=== PATIENT | female | born 1975 | race Two or more races ===

== ENCOUNTER 2018-06-03 22:13 | Emergency (ER) | payer MEDICAID ==
[~2018-06-03] VITALS: Ht 160 cm; Wt 56.7 kg
[2018-06-03 23:07] VITALS: BP 109/73
[2018-06-04] MEDS ORDERED: methylPREDNISolone SOD SUCC 125 MG/2 ML VL IM ONE (02:00)
[2018-06-04] MEDS ORDERED: ACETAMINOPHEN/CODEINE#3 (300/30mg) TAB PO ONE (02:00)
== END 2018-06-04 02:40 | disposition home or self-care (01) ==
LOC: ER 22:13
DX: S86.912A Strain of unspecified muscle(s) and tendon(s) at lower leg level, left leg, initial encounter (principal); Z98.51 Tubal ligation status; X50.9XXA Other and unspecified overexertion or strenuous movements or postures, initial encounter; Y93.89 Activity, other specified; Y99.8 Other external cause status; Y92.89 Other specified places as the place of occurrence of the external cause
CPT/HCPCS: 29505; 73562; 96372; 99283; J2930

== ENCOUNTER 2023-10-01 09:21 | Emergency (ER) | payer MEDICAID ==
[~2023-10-01] VITALS: Ht 160 cm; Wt 72.2 kg
[2023-10-01] MEDS: ONDANSETRON HCL 4 MG/2 ML VIAL IV ONE (09:44)
[2023-10-01] MEDS: SODIUM CHLORIDE 0.9% 1,000 ML IV ONE (09:44)
[2023-10-01 09:55] LABS: Basophils # (auto) 0 10 ^3/uL (0-0.2); Basophils % (auto) 0.3 % (0.0-2.0); Eosinophils # (auto) 0 10 ^3/uL (0-0.8); Eosinophils % (auto) 0.1 % (0.0-7.0); Hematocrit 38.6 % (36.0-46.0); Hemoglobin 12.8 g/dL (12.2-16.2); Lymphocytes # (auto) 1.5 10 ^3/uL (0.4-5.4); Mean Corpuscular Hemoglobin 28.2 pg (28.0-32.0); Mean Corpuscular Hgb Conc. 33.1 g/dL (32.0-36.0); Mean Corpuscular Volume 85.2 fL (80.0-100.0); Monocytes # (auto) 0.3 10 ^3/uL (0-1.3); Monocytes % (auto) 2.1 % (0.0-12.0); Neutrophils # (auto) 11.8 10 ^3/uL (1.6-8.6); Neutrophils % (auto) 86.5 % (37.0-80.0); Red Blood Cells 4.53 10^6/uL (4.0-5.20); Red Cell Distribution Width 14.6 % (11.8-14.3); White Blood Cell 13.6 10^3/uL (4.4-10.8)
[2023-10-01] MEDS ORDERED: ZOFR4T PO (10:30)
[2023-10-01 10:33] LABS: Chloride 103 mmol/L (98-107); Potassium 3.9 mmol/L (3.5-5.1); Sodium 134 mmol/L (136-145)
[2023-10-01 10:34] LABS: Anion Gap 6 (5-15); Calcium 9.5 mg/dL (8.7-10.4); Carbon Dioxide 25 mmol/L (20-30)
[2023-10-01 10:39] LABS: BUN/Creatinine Ratio 15.6 (10.0-20.0); Blood Urea Nitrogen 10 mg/dL (9-23); Glucose 128 mg/dL (74-106)
[2023-10-01] MEDS: HYDROcodone-ACET 5/325MG TAB ONE (10:40)
[2023-10-01] MEDS: HYDROcodone-ACET 5/325MG TAB PO ONE (10:48)
[2023-10-01 11:01] LABS: Urine Bacteria None Seen /hpf (None Seen)
[2023-10-01 11:18] LABS: Urine Blood 1+ /uL (Negative); Urine Clarity Clear (Clear); Urine Color Light-Yellow (Yellow); Urine Protein, UAD Negative (Negative); Urine Specific Gravity 1.019 (1.001-1.035); Urine Urobilinogen Normal (Negative); Urine WBC 1 /hpf (0 - 5)
[2023-10-01 11:49] VITALS: BP 128/74; PULSE 74; RESP 18; TEMP 98.2; O2SAT 96
== END 2023-10-01 11:56 | disposition home or self-care (01) ==
LOC: ER 09:21
DX: A05.9 Bacterial foodborne intoxication, unspecified (principal); D72.829 Elevated white blood cell count, unspecified; Z98.51 Tubal ligation status
CPT/HCPCS: 36415; 80048; 81001; 85025; 96361; 96374; 99283; J2405; J7030

== ENCOUNTER 2023-12-31 11:09 | Inpatient (IN) | payer MEDICAID ==
[~2023-12-31] VITALS: Ht 160 cm; Wt 72.5 kg
[~2023-12-31 11:09] MED LIST: ZOFR4T PO
[2023-12-31 12:04] LABS: Basophils # (auto) 0 10 ^3/uL (0-0.2); Basophils % (auto) 0.3 % (0.0-2.0); Eosinophils # (auto) 0 10 ^3/uL (0-0.8); Eosinophils % (auto) 0.2 % (0.0-7.0); Hematocrit 39.7 % (36.0-46.0); Hemoglobin 13.7 g/dL (12.2-16.2); Lymphocytes # (auto) 1.4 10 ^3/uL (0.4-5.4); Lymphocytes % (auto) 13.1 % (10.0-50.0); Mean Corpuscular Hemoglobin 30.1 pg (28.0-32.0); Mean Corpuscular Hgb Conc. 34.5 g/dL (32.0-36.0); Mean Corpuscular Volume 87.3 fL (80.0-100.0); Monocytes # (auto) 0.3 10 ^3/uL (0-1.3); Monocytes % (auto) 2.8 % (0.0-12.0); Neutrophils % (auto) 83.6 % (37.0-80.0); Platelet Count (auto) 202 10^3/uL (140-450); Red Blood Cells 4.54 10^6/uL (4.0-5.20); Red Cell Distribution Width 14.7 % (11.8-14.3); White Blood Cell 10.7 10^3/uL (4.4-10.8)
[2023-12-31 12:08] LABS: Chloride 103 mmol/L (98-107); Sodium 136 mmol/L (136-145)
[2023-12-31 12:09] LABS: Anion Gap 8 (5-15); Carbon Dioxide 25 mmol/L (20-31)
[2023-12-31 12:10] LABS: Calcium 9.5 mg/dL (8.7-10.4)
[2023-12-31 12:14] LABS: BUN/Creatinine Ratio 15.6 (10.0-20.0); Blood Urea Nitrogen 12 mg/dL (9-23); Glucose 102 mg/dL (74-106)
[2023-12-31] MEDS: ONDANSETRON ODT 4 MG TAB PO ONE (14:51)
[2023-12-31] MEDS ORDERED: ONDANSETRON HCL 4 MG/2 ML VIAL IV PRN (15:00)
[2023-12-31] MEDS: METOCLOPRAMIDE HCL 5MG/ml INJ 2ml VIAL IV ONE (15:11)
[2023-12-31] MEDS: SODIUM CHLORIDE 0.9% 1,000 ML IV ONE ×2 (15:11→15:32)
[2023-12-31] MEDS: ONDANSETRON HCL 4 MG/2 ML VIAL ONE (15:12)
[2023-12-31] MEDS: ACETAMINOPHEN 325 MG TAB PO ONE (15:12)
[2023-12-31 15:42] LABS: Urine Bacteria None Seen /hpf (None Seen)
[2023-12-31 16:33] LABS: Urine Amorphous Crystal FEW /hpf (None Seen); Urine Blood Negative /uL (Negative); Urine Clarity Turbid (Clear); Urine Color Yellow (Yellow); Urine Mucus FEW (None Seen); Urine Protein, UAD 1+ (Negative); Urine Specific Gravity 1.026 (1.001-1.035); Urine Urobilinogen 4 mg/dL (Negative); Urine WBC 7 /hpf (0 - 5)
[2023-12-31] MEDS: SODIUM CHLORIDE 0.9% 1,000 ML IV SCH (17:43)
[2023-12-31] MEDS: MORPHINE SULFATE INJ 2 MG/ml SYRG IV PRN (17:50)
[2023-12-31] MEDS: ACETAMINOPHEN 325 MG TAB PO PRN (23:55)
[2024-01-01 00:16] VITALS: BP 114/82; PULSE 92; PULSE 95; RESP 16; RESP 18; TEMP 98.5; O2SAT 95
[2024-01-01] MEDS ORDERED: RIZA10TA12 PO (02:02)
[2024-01-01 05:00] VITALS: BP 136/87; PULSE 105; RESP 18; TEMP 98.7; O2SAT 96
[2024-01-01 06:45] LABS: Basophils # (auto) 0 10 ^3/uL (0-0.2); Basophils % (auto) 0.6 % (0.0-2.0); Eosinophils # (auto) 0.1 10 ^3/uL (0-0.8); Eosinophils % (auto) 0.9 % (0.0-7.0); Hematocrit 35.6 % (36.0-46.0); Hemoglobin 12.1 g/dL (12.2-16.2); Lymphocytes # (auto) 2.4 10 ^3/uL (0.4-5.4); Lymphocytes % (auto) 32.7 % (10.0-50.0); Mean Corpuscular Hemoglobin 29.7 pg (28.0-32.0); Mean Corpuscular Volume 87.5 fL (80.0-100.0); Monocytes # (auto) 0.5 10 ^3/uL (0-1.3); Monocytes % (auto) 6.9 % (0.0-12.0); Neutrophils # (auto) 4.3 10 ^3/uL (1.6-8.6); Neutrophils % (auto) 58.9 % (37.0-80.0); Nucleated Red Blood Cells % 0.1 %; Platelet Count (auto) 180 10^3/uL (140-450); Red Blood Cells 4.07 10^6/uL (4.0-5.20); Red Cell Distribution Width 14.1 % (11.8-14.3); White Blood Cell 7.3 10^3/uL (4.4-10.8)
[2024-01-01 06:53] LABS: Chloride 108 mmol/L (98-107); Potassium 4.1 mmol/L (3.5-5.1); Sodium 138 mmol/L (136-145)
[2024-01-01 06:54] LABS: Anion Gap 6 (5-15); Carbon Dioxide 24 mmol/L (20-31)
[2024-01-01 06:55] LABS: Calcium 8.7 mg/dL (8.7-10.4)
[2024-01-01 06:59] LABS: Glucose 86 mg/dL (74-106)
[2024-01-01 07:00] LABS: Blood Urea Nitrogen 8 mg/dL (9-23)
[2024-01-01 07:21] LABS: BUN/Creatinine Ratio 11.9 (10.0-20.0)
[2024-01-01 08:00] VITALS: PULSE 82; RESP 18; O2SAT 96
[2024-01-01 09:56] VITALS: BP 103/68; PULSE 82; RESP 16; TEMP 97.9; O2SAT 96
== END 2024-01-01 11:30 | disposition left against medical advice (07) | DRG 249 ==
LOC: ER 11:09 → OVERFLOW 15:00 → EAST 23:47
PROVIDERS: ADMIT Internal Medicine; ATTEND Internal Medicine
DX: R11.2 Nausea with vomiting, unspecified (principal); E11.65 Type 2 diabetes mellitus with hyperglycemia; Z53.29 Procedure and treatment not carried out because of patient's decision for other reasons; Z98.51 Tubal ligation status; T38.3X5A Adverse effect of insulin and oral hypoglycemic [antidiabetic] drugs, initial encounter; N95.1 Menopausal and female climacteric states
CPT/HCPCS: 36415; 80048; 81001; 85025; G0378; J2405; Q0162